=== PATIENT | female | born 1955 | race Caucasian/White ===

== ENCOUNTER → 2018-02-21 08:35 | Outpatient (CLI) | payer OTHER, SELFPAY ==
--- NOTE | 2018-02-21 | DI.CT.S_ITS ---
PROCEDURE: CT CHEST WO CON INDICATIONS: Lung Cancer surveillance. TECHNIQUE: Noncontrast 5 mm thick sections acquired from the pulmonary apices to the posterior costophrenic angles. 7 mm thick coronal and sagittal MIP reformats were then acquired. For radiation dose reduction, the following was used: automated exposure control, adjustment of mA and/or kV according to patient size. COMPARISON: [facility], [place], THORAX WITHOUT CONTRAST, 12/15/2016, 9:39. [facility], [place], THORAX WITHOUT CONTRAST, 12/03/2014, 10:27. [facility], [place], PET/CT SKULL BASE TO MID THIGH, 01/26/2014, 9:11. [facility], [place], THORAX WITHOUT CONTRAST, 01/17/2014, 11:06. FINDINGS: Image quality: Excellent. Lungs and pleura: No acute consolidation. Postsurgical changes related to partial right pneumonectomy, with unchanged scarring and atelectasis. There is additional anterior left upper lobe subpleural scarring/atelectasis which is new from the. No pleural effusions or pneumothorax. Central bronchial wall thickening is present. Left subpleural groundglass focus measuring 8mm is unchanged in appearance since 12/07/16. 2 mm nodule seen in the left upper lobe image 29 is also unchanged since 12/03/14. Mediastinum: Heart size is normal. No pericardial effusion. No mediastinal adenopathy by size criteria. Thoracic aorta and central pulmonary arteries are normal in size. Esophagus is normal in caliber. No hiatal hernia. Bones and chest wall: No suspicious bony lesions. No vertebral body compression fractures. No axillary or supraclavicular adenopathy by size criteria. Thyroid gland negative. Abdomen: Subcentimeter hyperdense focus in the left lobe of the liver which is too small to characterize however unchanged since 12/03/14 IMPRESSION: Overall, stable examination without evidence of active metastatic disease. Postsurgical changes related to prior right partial pneumonectomy. Dictated by: Leonard Gutiérrez M.D. on 02/21/2018 at 9:46 Approved by: Leonard Gutiérrez M.D. on 02/21/2018 at 10:00
== END ==
PROVIDERS: PCP Family Medicine; Visit Provider Family Medicine
DX: C34.90 Malignant neoplasm of unspecified part of unspecified bronchus or lung (principal)
CPT/HCPCS: 71250

== ENCOUNTER → 2018-02-24 10:16 | Outpatient (CLI) | payer OTHER, SELFPAY ==
--- NOTE | 2018-02-24 | DI.MG.S_ITS ---
UNILATERAL RIGHT DIGITAL SCREENING MAMMOGRAM 3D/2D WITH CAD POST MASTECTOMY: 02/24/2018 CLINICAL: Routine screening. Personal history of breast cancer. Comparison is made to exams dated: 01/21/2017 mammogram, 01/01/2017 mammogram, and 12/21/2016 mammogram - [facility]. There are scattered fibroglandular elements in the right breast. Current study was also evaluated with a Computer Aided Detection (CAD) system. There is a mole marker on the right breast. No significant masses, calcifications, or other findings are seen in the breast. IMPRESSION: NEGATIVE There is no mammographic evidence of malignancy. A 1 year screening mammogram is recommended. This exam was interpreted at Station ID: [id number]. NOTE: For mammograms, a report in lay terms will be sent to the patient. Approximately 15% of breast malignancies will not be visualized mammographically. In the management of a palpable breast mass, a negative mammogram must not discourage biopsy of a clinically suspicious lesion. Electronically Signed By: Abhijit aggarwal/chance:02/24/2018 20:31:08 copy to: Ceferion Frazier copy to: SAJI WOLFF letter sent: Normal Exam ACR BI-RADS Category 1: Negative 3341F
== END ==
PROVIDERS: PCP Family Medicine; Visit Provider Family Medicine
DX: Z12.31 Encounter for screening mammogram for malignant neoplasm of breast (principal); Z85.3 Personal history of malignant neoplasm of breast
CPT/HCPCS: 77063; 77065

== ENCOUNTER → 2018-03-04 10:30 | Outpatient (CLI) | payer OTHER, SELFPAY ==
--- NOTE | 2018-03-04 | DI.RAD.S_ITS ---
PROCEDURE: XR KNEE LT 3V INDICATIONS: LEFT KNEE PAIN TECHNIQUE: 3 views of the knee were acquired. COMPARISON: [facility], , KNEE 1-2 VIEWS LEFT, 10/02/2006, 10:55. FINDINGS: Bones: No fractures or dislocations. No suspicious bony lesions. Moderate to severe medial and moderate patellofemoral narrowing, with subchondral sclerosis. Periarticular osteophytes are present. No erosions. Soft tissues: Moderate joint effusion. No suspicious soft tissue calcifications. IMPRESSION: Moderate effusion and degenerative changes consistent with arthritis most severe in the medial compartment as above. Dictated by: Lakisha Rebolledo M.D. on 03/04/2018 at 11:48 Approved by: Lakisha Rebolledo M.D. on 03/04/2018 at 11:51
== END ==
PROVIDERS: PCP Family Medicine; Visit Provider Family Medicine
DX: M17.12 Unilateral primary osteoarthritis, left knee (principal); M25.562 Pain in left knee
CPT/HCPCS: 73562

== ENCOUNTER → 2018-06-09 09:15 | Outpatient (CLI) | payer OTHER, SELFPAY ==
[2018-06-09 09:34] LABS: Add Manual Diff / Slide Review NO; Basophils Percent Auto 0.3 % (0-2); Eosinophils Percent Auto 3.3 % (2-4); Hematocrit 40.8 % (36-46); Hemoglobin 13.7 g/dL (12.0-16.0); Lymphocytes Percent Auto 21.5 % (25-40); Mean Corpuscular HGB Conc 33.6 % (30-36); Mean Corpuscular Hemoglobin 30.5 PG (26-34); Neutrophils Absolute Auto 5900 /uL (3000-5900); Neutrophils Percent Auto 65.9 % (50-75); Platelet Count 216 X10^3/uL (150-400); Red Blood Cell Count 4.49 X10^6/uL (4.0-5.2); Red Cell Distribution Width 13.6 % (11.6-14.8); White Blood Cell Count 8.9 X10^3/uL (4.5-11.0)
[2018-06-09 09:44] LABS: Alanine Aminotransferase 21 IU/L (9-52); Albumin 4.3 g/dL (3.5-5.0); Albumin Globulin Ratio 1.4 (1.0-2.8); Alkaline Phosphatase 50 U/L (38-126); Aspartate Aminotransferase 19 IU/L (14-36); BUN Creatinine Ratio 22.9 (6-22); Bilirubin Total 0.4 mg/dL (0.2-1.3); Blood Urea Nitrogen 16 mg/dL (7-17); Calcium 8.6 mg/dL (8.4-10.2); Carbon Dioxide 21 mmol/L (22-32); Chloride 105 mmol/L (98-107); Estimated Glomerular Filt Rate > 60.0 mL/min (>60); Globulin 3.1 g/dL (1.7-4.1); Glucose 110 mg/dL (80-110); HEMOLYSIS < 15 (0-50); Potassium 4.4 mmol/L (3.4-5.1); Sodium 137 mmol/L (137-145); Total Protein 7.4 g/dL (6.3-8.2)
== END ==
PROVIDERS: Family Provider Family Medicine; PCP Family Medicine; Visit Provider Nurse Practitioner Gerontology
DX: C50.912 Malignant neoplasm of unspecified site of left female breast (principal); Z17.0 Estrogen receptor positive status [ER+]
CPT/HCPCS: 36415; 80053; 85025

== ENCOUNTER 2018-06-14 11:00 | Oncology outpatient (ONC) | payer OTHER, SELFPAY ==
--- NOTE | 2018-01-28 08:34 | P.PNONC_ITS ---
Assessment and Plan (1) Breast cancer in female Current visit: No Status: Acute 01/28/18 08:33 Patient's a very pleasant 62-year-old female with node negative, well- differentiated, ER positive breast cancer. She underwent left mastectomy. She received chemotherapy in the form of Taxol cyclophosphamide followed by radiation therapy. Adjuvant hormonal therapy in the form of tamoxifen was initiated October of 2017 since which time patient reports feeling quite depressed. She does have a remote history of depression, not requiring hospitalization, not requiring medication. She has been taking some lorazepam at home which was prescribed for her chemotherapy. I discussed with her lorazepam is a sedative and most likely might worsen her depression. It might help with feelings of anxiety. Moving forward I do not want her taking lorazepam daily for depression. Step 1. I asked her to see a counselor or therapist. Patient very politely declined, stating ?I know this will work for me?. Plan at this point in time is to take a tamoxifen drug holiday for 2 weeks. Resume tamoxifen after 2 weeks, return to clinic after 4 weeks on tamoxifen to evaluate. If symptoms are not improved we will discuss starting an antidepressant although I again strongly recommended to the patient that she reconsider seeing a therapist or counselor. CBC, CMP unremarkable today. Exam is unremarkable as well. Return to clinic in 6 weeks as per above. I will have our STREET LIGHT INSPECTOR Aniya Ritter reach out to the patient and offer support. 01/28/18 16:36 - Time Spent with Patient 35 mins PN -Subjective Interval history: The patient is a 62 year old Female who is being seen in the clinic 01/28/2018. She carries a diagnosis of stage II node-negative ER positive HER-2 negative low -grade breast cancer in clinical surveillance since her diagnosis was made in January 2017. She received chemotherapy in the form paclitaxel cyclophosphamide x4 cycles. Chest wall radiation therapy was completed on September 15, 2017. Tamoxifen was initiated November 04, 2017. Patient returns today for 3 month clinical evaluation. Today she reports ?depression? since starting tamoxifen. She reports she is easily tearful. She lacks motivation. She spends most of her time in the house. She feels he she is not herself. She feels blue most of the time. No suicidal ideations, no homicidal ideations. She does have a remote history of depression many years ago. She has never been on medication she has never been hospitalized. She has some lorazepam which she used when she was receiving chemotherapy she has been taking 1 mg in the morning and occasionally 1 mg in the evening which she reports has been ?helping?. Otherwise seems clinically stable. No recent illnesses or infections. She does do self-breast exams she has not noticed any changes. No postop or post radiation concerns. Activity tolerance has been affected by depression however the patient denies shortness of breath. No nausea. No change in appetite. No issues with sleep. No vaginal bleeding, no LE edema or pain.She is having hot flashes however reports them to be ?tolerable?. She is still being followed by General surgery Dr. Frazier also Radiation Oncology Dr. Arriaga. She has upcoming appointments with both. Past Medical History The patient's past medical history is significant for: 1) Breast cancer, Left - multifocal. Stage IIB (pT3, N0, M0) Diagnosis: 01/21/2017. Ultrasound core needle biopsy left breast 2:00 x 3: Biopsy #1. 3 cm from nipple. Pathology confirming invasive carcinoma. Histology showing solid papillary carcinoma. Overall grade was 1 with a mitotic score of 1. No DCIS was seen. ER and WA positive at 100% and 10% respectively. HER-2 negative. Biopsy #2. Anterior medial. Pathology confirming invasive carcinoma. Histological grade 1 with a mitotic rate of 1. Immunostains ER and WA positive at 100% and 10% respectively. Biopsy #3. Nipple, lateral. 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 Martha grade 1. Clinical staging workup, pretreatment: 12/21/2016. Bilateral screening mammogram. Breast tissue is predominantly fatty. Mass the left breast 1:00 anterior depth is identified. 01/01/2017. Diagnostic left mammogram. Left breast tissue predominantly fatty. At the 2:00 middle depth position is a 13 mm irregular mass with an distinct margins and coarse calcifications. This correlates with the screening mammogram dated 12/21/2016. 01/01/2017. Ultrasound left breast and left axilla. In the lateral quadrant anterior depth, 3 clusters of lobulated solid masses are identified, each measuring up to 15 mm. The farthest distance between the masses is estimated at 3 cm. New compared to mammogram dated 01/13/2011. 02/17/2017. MRI of the breast. Left Breast findings: Biopsy-proven mass, labeled 1: 3:00 anterior depth. Measuring 13 x 13 x 10 mm. Biopsy-proven mass, labeled 2: 3:00 anterior to middle depth. Measuring 10 x 10 x 11 mm. Biopsy-proven mass, labeled 3: 3:00 radius middle third. Measuring 9 x 9 x 6 mm. Oval mass not biopsied, labeled 4; 3:00 posterior depth. No measurements provided. Left axillary lymph node. Fatty hilum seen. Cortex may be thickened. No abnormality seen in the right breast. No abnormality seen in the liver lungs are internal mammary nodes. 02/24/2017. Bone scan whole-body. No evidence of metastatic bone disease. Multiple areas of degenerative joint disease seen. 02/24/2017. Baseline laboratory data: CEA equal to 12.2 (normal less than 3), CA 15.3 = 25, and CA 27.29 = 19 Definitive Surgery: 03/09/2017. Left breast mastectomy with sentinel node procedure. Pathology confirming multifocal invasive papillary carcinoma. 2 foci seen 1 measuring 70 mm another measuring 17 mm. No DCIS was seen. [place] histological score was 3. Overall grade was 1. 2 sentinel lymph nodes were identified both negative for disease. Prognosis: 04/01/2017. Predict [facility] online. 5 and 10 year overall survival without further therapy at 92.9% and 81.6% respectively. Treatment recommendations: Adjuvant chemotherapy with paclitaxel cyclophosphamide ?4 cycles followed by radiation therapy followed by adjuvant hormonal therapy. 04/20/2017-07/06/2017. Cyclophosphamide paclitaxel x 6 cycles. 11/04/2017 - Present: Tamoxfen 20 mg daily x 5 years. 2) Lung Cancer, Right. Stage I. Remission Diagnosis: February 2013. Wedge resection at by Dr. Trujillo. Adenocarcinoma. Pathology unavailable. Clinical Stagin11/26/2010. CT chest with contrast. 2 groundglass nodules right lower lobe measuring up to 4 mm. Left groundglass nodule measuring 3 mm. Left upper lobe nodule measuring 3 mm. 05/04/2011. CT chest without contrast. 2 small ill-defined nodules superior segments the lower lobe one on each side unchanged compared to 12/04/2010. Surveillence: 01/26/2014. PET/CT scan. Right lower lobe 9 mm groundglass nodule, new compared to April 2011. No SUV activity however increase compared to April 2012. 12/03/2014. CT chest without contrast. Left upper lobe nodule new. 12/15/2016 CT chest without contrast. Left lower lobe 6-7 mm ill-defined area of groundglass opacity, mildly increased. Left lung base nodule measuring 2-3 mm , unchanged. Left upper lobe groundglass nodule measuring 2 mm, unchanged.past medical history is significant for: Breast Resection Staging BC Primary Tumor T1- Tumor <= 20mm BC Regional Nodes N1-movable Ipsilat/axill BC Resection Histology Grade I Results - Labs 01/28/18 14:04 01/28/18 14:04 Home Medications and Allergies Home Medications Medication Instructions Recorded Confirmed Type vivi (Zingiber officinalis) 550 mg PO BID #0 04/27/17 History pyridoxine (vitamin B6) 300 mg PO QDAY #0 04/27/17 History lorazepam 0.5 mg PO Q6HP PRN #60 tab 06/29/17 Rx calcium carbonate 2,400 mg PO Q DAY #0 11/04/17 History tamoxifen 20 mg PO QDAY #30 tab 11/04/17 Rx Allergies Allergy/AdvReac Type Severity Reaction Status Date / Time No Known Allergies Allergy Uncoded 11/17/17 12:04 Exam Narrative: a bit tearful at outset of interview and exam. Non toxic appearing, well appearing. - Constitutional positive no acute distress - Routine HEENT Exam ENT: Present: mucous membranes moist - Routine Neck Exam Present: supple. Absent: lymphadenopathy, thyromegaly - Routine Chest/Breast/Axilla Exam Chest wall exam standard: Absent: tenderness, mass Breast: Present: left mastectomy. Absent: tenderness, mass, erythema Axillae: Absent: lymphadenopathy, mass, tenderness - Routine Respiratory Exam Present: Clear to auscultation bilaterally. Absent: rales, rhonchi, wheezes - Routine Cardiovascular Exam Present: RRR, S1, S2. Absent: murmur, gallop, rubs - Routine Abdominal Exam Present: soft, normoactive bowel sounds. Absent: tenderness, distended, organomegaly - Routine Extremities Exam Absent: edema, calf tenderness - Routine Skin Exam Present: intact, normal turgor. Absent: petechiae, rash - Routine Neurological Exam Present: alert, oriented X3, vision grossly intact, hearing grossly intact - Routine Psychiatric Exam Present: normal affect, normal thought process, cooperative, good insight, good judgment. Absent: suicidal ideation, homicidal ideation, auditory hallucinations, depressed, anxious
[2018-01-28 14:16] LABS: Add Manual Diff / Slide Review NO; Basophils Percent Auto 0.4 % (0-2); Eosinophils Percent Auto 2.6 % (2-4); Hematocrit 40.7 % (36-46); Hemoglobin 13.8 g/dL (12.0-16.0); Lymphocytes Percent Auto 27.6 % (25-40); Mean Corpuscular HGB Conc 33.8 % (30-36); Mean Corpuscular Volume 91.6 fL (80-100); Monocytes Percent Auto 10.2 % (3-14); Neutrophils Absolute Auto 3700 /uL (3000-5900); Neutrophils Percent Auto 59.2 % (50-75); Platelet Count 178 X10^3/uL (150-400); Red Blood Cell Count 4.45 X10^6/uL (4.0-5.2); Red Cell Distribution Width 13.1 % (11.6-14.8); White Blood Cell Count 6.2 X10^3/uL (4.5-11.0)
[2018-01-28 14:24] LABS: Alanine Aminotransferase 45 IU/L (9-52); Albumin 4.2 g/dL (3.5-5.0); Albumin Globulin Ratio 1.3 (1.0-2.8); Alkaline Phosphatase 60 U/L (38-126); Aspartate Aminotransferase 33 IU/L (14-36); BUN Creatinine Ratio 15.7 (6-22); Bilirubin Total 0.5 mg/dL (0.2-1.3); Blood Urea Nitrogen 11 mg/dL (7-17); Carbon Dioxide 26 mmol/L (22-32); Chloride 104 mmol/L (98-107); Estimated Glomerular Filt Rate > 60.0 mL/min (>60); Globulin 3.3 g/dL (1.7-4.1); Glucose 102 mg/dL (80-110); HEMOLYSIS < 15 (0-50); Potassium 4.2 mmol/L (3.4-5.1); Sodium 139 mmol/L (137-145); Total Protein 7.5 g/dL (6.3-8.2)
[2018-01-28 15:22] VITALS: BP 134/80; PULSE 78; RESP 18; TEMP 36.8; O2SAT 97
[2018-03-14 12:06] VITALS: BP 142/80; PULSE 72; RESP 16; TEMP 36.8; O2SAT 96
--- NOTE | 2018-03-14 12:29 | P.PNONC_ITS ---
Assessment and Plan (1) Breast cancer in female Current visit: No Status: Acute 03/14/18 12:27 The patient is a 62 year old Female who is being seen in the clinic 03/14/2018. She carries a diagnosis of stage II node-negative ER positive HER-2 negative low -grade breast cancer in clinical surveillance since her diagnosis was made in January 2017. She received chemotherapy in the form paclitaxel cyclophosphamide x4 cycles. Chest wall radiation therapy was completed on September 15, 2017. Tamoxifen was initiated November 04, 2017. Patient was most recently seen January 28, 2018 at which point she was reporting severe depression which she felt was due to tamoxifen. She took a tamoxifen drug holiday for 2 weeks then resumed. She has been back on tamoxifen for 4 weeks and reporting she has absolutely no more depression. Overall she is feeling quite well. She does wish to continue on tamoxifen. She had recent mammogram, bilateral screening which was reported without evidence of malignancy. She also had chest CT noting history of lung cancer. This was also without evidence of active disease. Return to clinic in 3 months time for provider visit, CBC, CMP. Continue tamoxifen. PN -Subjective Interval history: The patient is a 62 year old Female who is being seen in the clinic 03/14/2018. She carries a diagnosis of stage II node-negative ER positive HER-2 negative low -grade breast cancer in clinical surveillance since her diagnosis was made in January 2017. She received chemotherapy in the form paclitaxel cyclophosphamide x4 cycles. Chest wall radiation therapy was completed on September 15, 2017. Tamoxifen was initiated November 04, 2017. Patient was most recently seen January 28, 2018 at which point she was reporting severe depression which she felt was due to tamoxifen. She took a tamoxifen drug holiday for 2 weeks then resumed. She has been back on tamoxifen for 4 weeks. On exam today she reports she is ?much better?. Specifically she denies any depression whatsoever. No fatigue. Appetite excellent, sleeping well. She states ? I am back to my normal self, the drug holiday worked. She does have some minor hot flashes. No vaginal bleeding. During the interval she did undergo routine bilateral mammogram screening which was reported without evidence of malignancy. She also had chest CT ordered by her primary care provider noting a diagnosis of prior history lung cancer. This chest CT was also without evidence of active disease. She is still being followed by General surgery Dr. Potter also Radiation Oncology Dr. Arriaga. She has upcoming appointments with both. Past Medical History The patient's past medical history is significant for: 1) Breast cancer, Left - multifocal. Stage IIB (pT3, N0, M0) Diagnosis: 01/21/2017. Ultrasound core needle biopsy left breast 2:00 x 3: Biopsy #1. 3 cm from nipple. Pathology confirming invasive carcinoma. Histology showing solid papillary carcinoma. Overall grade was 1 with a mitotic score of 1. No DCIS was seen. ER and WA positive at 100% and 10% respectively. HER-2 negative. Biopsy #2. Anterior medial. Pathology confirming invasive carcinoma. Histological grade 1 with a mitotic rate of 1. Immunostains ER and WA positive at 100% and 10% respectively. Biopsy #3. Nipple, lateral. 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 [place] grade 1. Clinical staging workup, pretreatment: 12/21/2016. Bilateral screening mammogram. Breast tissue is predominantly fatty. Mass the left breast 1:00 anterior depth is identified. 01/01/2017. Diagnostic left mammogram. Left breast tissue predominantly fatty. At the 2:00 middle depth position is a 13 mm irregular mass with an distinct margins and coarse calcifications. This correlates with the screening mammogram dated 12/21/2016. 01/01/2017. Ultrasound left breast and left axilla. In the lateral quadrant anterior depth, 3 clusters of lobulated solid masses are identified, each measuring up to 15 mm. The farthest distance between the masses is estimated at 3 cm. New compared to mammogram dated 01/13/2011. 02/17/2017. MRI of the breast. Left Breast findings: Biopsy-proven mass, labeled 1: 3:00 anterior depth. Measuring 13 x 13 x 10 mm. Biopsy-proven mass, labeled 2: 3:00 anterior to middle depth. Measuring 10 x 10 x 11 mm. Biopsy-proven mass, labeled 3: 3:00 radius middle third. Measuring 9 x 9 x 6 mm. Oval mass not biopsied, labeled 4; 3:00 posterior depth. No measurements provided. Left axillary lymph node. Fatty hilum seen. Cortex may be thickened. No abnormality seen in the right breast. No abnormality seen in the liver lungs are internal mammary nodes. 02/24/2017. Bone scan whole-body. No evidence of metastatic bone disease. Multiple areas of degenerative joint disease seen. 02/24/2017. Baseline laboratory data: CEA equal to 12.2 (normal less than 3), CA 15.3 = 25, and CA 27.29 = 19 Definitive Surgery: 03/09/2017. Left breast mastectomy with sentinel node procedure. Pathology confirming multifocal invasive papillary carcinoma. 2 foci seen 1 measuring 70 mm another measuring 17 mm. No DCIS was seen. [place] histological score was 3. Overall grade was 1. 2 sentinel lymph nodes were identified both negative for disease. Prognosis: 04/01/2017. Predict [facility] online. 5 and 10 year overall survival without further therapy at 92.9% and 81.6% respectively. Treatment recommendations: Adjuvant chemotherapy with paclitaxel cyclophosphamide ?4 cycles followed by radiation therapy followed by adjuvant hormonal therapy. 04/20/2017-07/06/2017. Cyclophosphamide paclitaxel x 6 cycles. 11/04/2017 - Present: Tamoxfen 20 mg daily x 5 years. 2) Lung Cancer, Right. Stage I. Remission Diagnosis: February 2013. Wedge resection at by Dr. Trujillo. Adenocarcinoma. Pathology unavailable. Clinical Stagin11/26/2010. CT chest with contrast. 2 groundglass nodules right lower lobe measuring up to 4 mm. Left groundglass nodule measuring 3 mm. Left upper lobe nodule measuring 3 mm. 05/04/2011. CT chest without contrast. 2 small ill-defined nodules superior segments the lower lobe one on each side unchanged compared to 12/04/2010. Surveillence: 01/26/2014. PET/CT scan. Right lower lobe 9 mm groundglass nodule, new compared to April 2011. No SUV activity however increase compared to April 2012. 12/03/2014. CT chest without contrast. Left upper lobe nodule new. 12/15/2016 CT chest without contrast. Left lower lobe 6-7 mm ill-defined area of groundglass opacity, mildly increased. Left lung base nodule measuring 2-3 mm , unchanged. Left upper lobe groundglass nodule measuring 2 mm, unchanged.past medical history is significant for: Breast Resection Staging BC Primary Tumor T1- Tumor <= 20mm BC Regional Nodes N1-movable Ipsilat/axill BC Resection Histology Grade I Results - Labs 01/28/18 14:04 01/28/18 14:04 Laboratory Last Values WBC 6.2 X10^3/uL (4.5-11.0) 01/28/18 14:04 RBC 4.45 X10^6/uL (4.0-5.2) 01/28/18 14:04 Hgb 13.8 g/dL (12.0-16.0) 01/28/18 14:04 Hct 40.7 % (36-46) 01/28/18 14:04 MCV 91.6 fL (80-100) 01/28/18 14:04 MCH 31.0 PG (26-34) 01/28/18 14:04 MCHC 33.8 % (30-36) 01/28/18 14:04 RDW 13.1 % (11.6-14.8) 01/28/18 14:04 Plt Count 178 X10^3/uL (150-400) 01/28/18 14:04 Neut % (Auto) 59.2 % (50-75) 01/28/18 14:04 Lymph % (Auto) 27.6 % (25-40) 01/28/18 14:04 [place] % (Auto) 10.2 % (3-14) 01/28/18 14:04 Eos % (Auto) 2.6 % (2-4) 01/28/18 14:04 Baso % (Auto) 0.4 % (0-2) 01/28/18 14:04 Neut # (Auto) 3700 /uL (9058-5735) 01/28/18 14:04 Sodium 139 mmol/L (137-145) 01/28/18 14:04 Potassium 4.2 mmol/L (3.4-5.1) 01/28/18 14:04 Chloride 104 mmol/L (98-107) 01/28/18 14:04 Carbon Dioxide 26 mmol/L (22-32) 01/28/18 14:04 BUN 11 mg/dL (7-17) 01/28/18 14:04 Creatinine 0.70 mg/dL (0.52-1.04) 01/28/18 14:04 Estimated GFR > 60.0 mL/min (>60) 01/28/18 14:04 BUN/Creatinine Ratio 15.7 (6-22) 01/28/18 14:04 Glucose 102 mg/dL (80-110) 01/28/18 14:04 Calcium 9.0 mg/dL (8.4-10.2) 01/28/18 14:04 Total Bilirubin 0.5 mg/dL (0.2-1.3) 01/28/18 14:04 AST 33 IU/L (14-36) 01/28/18 14:04 ALT 45 IU/L (9-52) 01/28/18 14:04 Alkaline Phosphatase 60 U/L (38-126) 01/28/18 14:04 Total Protein 7.5 g/dL (6.3-8.2) 01/28/18 14:04 Albumin 4.2 g/dL (3.5-5.0) 01/28/18 14:04 Globulin 3.3 g/dL (1.7-4.1) 01/28/18 14:04 Albumin/Globulin Ratio 1.3 (1.0-2.8) 01/28/18 14:04 Home Medications and Allergies Home Medications Medication Instructions Recorded Confirmed Type lorazepam 0.5 mg PO Q6HP PRN #60 tab 06/29/17 Rx calcium carbonate 2,400 mg PO Q DAY #0 11/04/17 History tamoxifen 20 mg PO QDAY #30 tab 11/04/17 Rx Allergies Allergy/AdvReac Type Severity Reaction Status Date / Time No Known Allergies Allergy Uncoded 11/17/17 12:04 Exam Vital signs: Last Vital Signs Temp 98.3 F 03/14/18 12:06 Pulse 72 03/14/18 12:06 Resp 16 03/14/18 12:06 BP 142/80 H 03/14/18 12:06 Pulse Ox 96 03/14/18 12:06 - Constitutional positive no acute distress - Routine HEENT Exam Head: Present: normocephalic, atraumatic Eye: Present: conjunctivae pink. Absent: conjunctival icterus, scleral injection ENT: Present: mucous membranes moist - Routine Skin Exam Present: normal turgor. Absent: rash - Routine Neurological Exam Present: alert, oriented X3 - Routine Psychiatric Exam Present: normal affect, cooperative, good insight, good judgment. Absent: depressed, anxious
--- NOTE | 2018-05-20 10:52 | PC.NURSE ---
Addendum entered by Tim Nascimento R.N. 05/31/18 08:46: Rx faxed to [facility] per pt request Original Note: Pt called requesting a refill on her ativan. Preferred pharmacy is [facility]
[2018-06-14 11:04] VITALS: BP 133/80; PULSE 74; RESP 18; TEMP 36.7; O2SAT 96
--- NOTE | 2018-06-14 11:48 | P.PNONC_ITS ---
PN -Subjective Interval history: The patient is a 63 year old Female who is being seen in the clinic 06/14/2018. She carries a diagnosis of stage II node-negative ER positive HER-2 negative low -grade breast cancer in clinical surveillance since her diagnosis was made in January 2017. She received chemotherapy in the form paclitaxel cyclophosphamide x4 cycles. Chest wall radiation therapy was completed on September 15, 2017. Tamoxifen was initiated November 04, 2017. Patient was most recently seen 02/22/2018 at which point she was reporting severe depression which she felt was due to tamoxifen. She took a tamoxifen drug holiday for 2 weeks then resumed. Per pt reports she was just fine after drug holiday, no further issues. Mood has been stable, no further episodes of depression. the pt states Yes I feel like my normal happy self. Specifically the pat denies any new pain, no new lumps or bumps. No headaches. No vaginal bleeding the patient has had a hysterectomy. No lower extremity swelling, no pain in calves. Appetite is excellent. Weight is stable. During the interval she did undergo routine bilateral mammogram screening which was reported without evidence of malignancy. She also had chest CT ordered by her primary care provider noting a diagnosis of prior history lung cancer. This chest CT was also without evidence of active disease. She is still being followed by General surgery Dr. Frazier also Radiation Oncology Dr. Arriaga. She has upcoming appointments with both. Past Medical History The patient's past medical history is significant for: 1) Breast cancer, Left - multifocal. Stage IIB (pT3, N0, M0) Diagnosis: 01/21/2017. Ultrasound core needle biopsy left breast 2:00 x 3: Biopsy #1. 3 cm from nipple. Pathology confirming invasive carcinoma. Histology showing solid papillary carcinoma. Overall grade was 1 with a mitotic score of 1. No DCIS was seen. ER and MS positive at 100% and 10% respectively. HER-2 negative. Biopsy #2. Anterior medial. Pathology confirming invasive carcinoma. Histological grade 1 with a mitotic rate of 1. Immunostains ER and MS positive at 100% and 10% respectively. Biopsy #3. Nipple, lateral. 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 Martha grade 1. Clinical staging workup, pretreatment: 12/21/2016. Bilateral screening mammogram. Breast tissue is predominantly fatty. Mass the left breast 1:00 anterior depth is identified. 01/01/2017. Diagnostic left mammogram. Left breast tissue predominantly fatty. At the 2:00 middle depth position is a 13 mm irregular mass with an distinct margins and coarse calcifications. This correlates with the screening mammogram dated 12/21/2016. 01/01/2017. Ultrasound left breast and left axilla. In the lateral quadrant anterior depth, 3 clusters of lobulated solid masses are identified, each measuring up to 15 mm. The farthest distance between the masses is estimated at 3 cm. New compared to mammogram dated 01/13/2011. 02/17/2017. MRI of the breast. Left Breast findings: Biopsy-proven mass, labeled 1: 3:00 anterior depth. Measuring 13 x 13 x 10 mm. Biopsy-proven mass, labeled 2: 3:00 anterior to middle depth. Measuring 10 x 10 x 11 mm. Biopsy-proven mass, labeled 3: 3:00 radius middle third. Measuring 9 x 9 x 6 mm. Oval mass not biopsied, labeled 4; 3:00 posterior depth. No measurements provided. Left axillary lymph node. Fatty hilum seen. Cortex may be thickened. No abnormality seen in the right breast. No abnormality seen in the liver lungs are internal mammary nodes. 02/24/2017. Bone scan whole-body. No evidence of metastatic bone disease. Multiple areas of degenerative joint disease seen. 02/24/2017. Baseline laboratory data: CEA equal to 12.2 (normal less than 3), CA 15.3 = 25, and CA 27.29 = 19 Definitive Surgery: 03/09/2017. Left breast mastectomy with sentinel node procedure. Pathology confirming multifocal invasive papillary carcinoma. 2 foci seen 1 measuring 70 mm another measuring 17 mm. No DCIS was seen. Stigler histological score was 3. Overall grade was 1. 2 sentinel lymph nodes were identified both negative for disease. Prognosis: 04/01/2017. Predict [facility] online. 5 and 10 year overall survival without further therapy at 92.9% and 81.6% respectively. Treatment recommendations: Adjuvant chemotherapy with paclitaxel cyclophosphamide ?4 cycles followed by radiation therapy followed by adjuvant hormonal therapy. 04/20/2017-07/06/2017. Cyclophosphamide paclitaxel x 6 cycles. 11/04/2017 - Present: Tamoxfen 20 mg daily x 5 years. 2) Lung Cancer, Right. Stage I. Remission Diagnosis: February 2013. Wedge resection at by Dr. Trujillo. Adenocarcinoma. Pathology unavailable. Clinical Stagin11/26/2010. CT chest with contrast. 2 groundglass nodules right lower lobe measuring up to 4 mm. Left groundglass nodule measuring 3 mm. Left upper lobe nodule measuring 3 mm. 05/04/2011. CT chest without contrast. 2 small ill-defined nodules superior segments the lower lobe one on each side unchanged compared to 12/04/2010. Surveillence: 01/26/2014. PET/CT scan. Right lower lobe 9 mm groundglass nodule, new compared to April 2011. No SUV activity however increase compared to April 2012. 12/03/2014. CT chest without contrast. Left upper lobe nodule new. 12/15/2016 CT chest without contrast. Left lower lobe 6-7 mm ill-defined area of groundglass opacity, mildly increased. Left lung base nodule measuring 2-3 mm , unchanged. Left upper lobe groundglass nodule measuring 2 mm, unchanged.past medical history is significant for: Breast Resection Staging BC Primary Tumor T1- Tumor <= 20mm BC Regional Nodes N1-movable Ipsilat/axill BC Resection Histology Grade I Home Medications and Allergies Home Medications Medication Instructions Recorded Confirmed Type calcium carbonate 2,400 mg PO Q DAY #0 11/04/17 History lorazepam 0.5 mg PO Q8-10H PRN #60 tab 05/30/18 Rx tamoxifen 20 mg PO DAILY #90 tab 06/14/18 Rx Allergies Allergy/AdvReac Type Severity Reaction Status Date / Time No Known Allergies Allergy Uncoded 11/17/17 12:04 Exam - Constitutional positive no acute distress - Routine HEENT Exam Eye: Present: conjunctivae pink. Absent: conjunctival icterus, scleral injection ENT: Present: mucous membranes moist, oropharynx clear - Routine Neck Exam Present: supple. Absent: lymphadenopathy - Routine Chest/Breast/Axilla Exam Chest wall exam standard: Absent: tenderness, mass Breast: Present: left mastectomy. Absent: tenderness, induration, mass Axillae: Absent: lymphadenopathy, mass - Routine Respiratory Exam Present: Clear to auscultation bilaterally, decreased breath sounds. Absent: prolonged expiratory phase, rales, respiratory distress, rhonchi, wheezes - Routine Cardiovascular Exam Present: RRR, S1, S2. Absent: murmur, gallop, rubs, JVD - Routine Abdominal Exam Present: soft, normoactive bowel sounds. Absent: tenderness, distended, organomegaly, mass - Routine Extremities Exam Absent: edema, calf tenderness - Routine Skin Exam Present: intact, normal turgor. Absent: petechiae, rash - Routine Neurological Exam Present: alert, oriented X3 - Routine Psychiatric Exam Present: normal affect Results - Labs Laboratory Last Values WBC 6.2 X10^3/uL (4.5-11.0) 01/28/18 14:04 RBC 4.45 X10^6/uL (4.0-5.2) 01/28/18 14:04 Hgb 13.8 g/dL (12.0-16.0) 01/28/18 14:04 Hct 40.7 % (36-46) 01/28/18 14:04 MCV 91.6 fL (80-100) 01/28/18 14:04 MCH 31.0 PG (26-34) 01/28/18 14:04 MCHC 33.8 % (30-36) 01/28/18 14:04 RDW 13.1 % (11.6-14.8) 01/28/18 14:04 Plt Count 178 X10^3/uL (150-400) 01/28/18 14:04 Neut % (Auto) 59.2 % (50-75) 01/28/18 14:04 Lymph % (Auto) 27.6 % (25-40) 01/28/18 14:04 [place] % (Auto) 10.2 % (3-14) 01/28/18 14:04 Eos % (Auto) 2.6 % (2-4) 01/28/18 14:04 Baso % (Auto) 0.4 % (0-2) 01/28/18 14:04 Neut # (Auto) 3700 /uL (2555-7097) 01/28/18 14:04 Sodium 139 mmol/L (137-145) 01/28/18 14:04 Potassium 4.2 mmol/L (3.4-5.1) 01/28/18 14:04 Chloride 104 mmol/L (98-107) 01/28/18 14:04 Carbon Dioxide 26 mmol/L (22-32) 01/28/18 14:04 BUN 11 mg/dL (7-17) 01/28/18 14:04 Creatinine 0.70 mg/dL (0.52-1.04) 01/28/18 14:04 Estimated GFR > 60.0 mL/min (>60) 01/28/18 14:04 BUN/Creatinine Ratio 15.7 (6-22) 01/28/18 14:04 Glucose 102 mg/dL (80-110) 01/28/18 14:04 Calcium 9.0 mg/dL (8.4-10.2) 01/28/18 14:04 Total Bilirubin 0.5 mg/dL (0.2-1.3) 01/28/18 14:04 AST 33 IU/L (14-36) 01/28/18 14:04 ALT 45 IU/L (9-52) 01/28/18 14:04 Alkaline Phosphatase 60 U/L (38-126) 01/28/18 14:04 Total Protein 7.5 g/dL (6.3-8.2) 01/28/18 14:04 Albumin 4.2 g/dL (3.5-5.0) 01/28/18 14:04 Globulin 3.3 g/dL (1.7-4.1) 01/28/18 14:04 Albumin/Globulin Ratio 1.3 (1.0-2.8) 01/28/18 14:04 Assessment and Plan (1) Breast cancer in female Current visit: No Status: Acute The patient is a 63-year-old female who carries a diagnosis of stage II node- negative ER positive HER-2 negative low-grade breast cancer in clinical surveillance since her diagnosis was made in January 2017. She received chemotherapy in the form paclitaxel . She remains on tamoxifen without adverse effects. Clinically on exam today there are no signs or symptoms of disease recurrence. She will be due for her next screening mammogram in February of 2019. Per patient request I have sent over a refill for tamoxifen. Patient is to return to clinic in 6 months for provider visit CBC, CMP. Sooner for any changes or concerns. - Time Spent with Patient 25 mins
== END 2018-06-15 12:00 ==
PROVIDERS: PCP Family Medicine; Visit Provider Nurse Practitioner Gerontology
DX: C50.412 Malignant neoplasm of upper-outer quadrant of left female breast (principal); Z17.0 Estrogen receptor positive status [ER+]; Z79.810 Long term (current) use of selective estrogen receptor modulators (SERMs); Z85.118 Personal history of other malignant neoplasm of bronchus and lung
CPT/HCPCS: 80053; 85025; 99213; 99214

== ENCOUNTER → 2019-05-08 13:44 | Outpatient (CLI) | payer OTHER, SELFPAY ==
--- NOTE | 2019-05-08 13:46 | DI.MG.S_ITS ---
UNILATERAL RIGHT DIGITAL SCREENING MAMMOGRAM 3D/2D WITH CAD POST MASTECTOMY: 05/08/2019 CLINICAL: Routine screening. Personal history of breast cancer. Comparison is made to exams dated: 02/24/2018 mammogram, 12/21/2016 mammogram, and 01/13/2011 mammogram - [facility]. There are scattered fibroglandular elements in right breast. Current study was also evaluated with a Computer Aided Detection (CAD) system. There is a mole marker on the right breast. No significant masses, calcifications, or other findings are seen in the breast. There has been no significant interval change. IMPRESSION: NEGATIVE There is no mammographic evidence of malignancy. A 1 year screening mammogram is recommended. This exam was interpreted at Station ID: [id number]. NOTE: For mammograms, a report in lay terms will be sent to the patient. Approximately 15% of breast malignancies will not be visualized mammographically. In the management of a palpable breast mass, a negative mammogram must not discourage biopsy of a clinically suspicious lesion. Electronically Signed By: Efrem connelly/chance:05/08/2019 17:23:31 copy to: Prateek Castillo letter sent: Normal Exam ACR BI-RADS Category 1: Negative 3341F
--- NOTE | 2019-05-08 13:51 | DI.CT.S_ITS ---
PROCEDURE: CT CHEST WO CON INDICATIONS: h/o lung cancer TECHNIQUE: Noncontrast 5 mm thick sections acquired from the pulmonary apices to the posterior costophrenic angles. 1 mm lung window, 5 mm thick coronal and sagittal and 7 mm axial MIP reformats were then acquired. For radiation dose reduction, the following was used: automated exposure control, adjustment of mA and/or kV according to patient size. COMPARISON: [facility], CT, THORAX WITHOUT CONTRAST, 12/15/2016, 9:39. [facility], CT, THORAX WITHOUT CONTRAST, 12/03/2014, 10:27. [facility], [place], PET/CT SKULL BASE TO MID THIGH, 01/26/2014, 9:11. [facility], CT, THORAX WITHOUT CONTRAST, 01/17/2014, 11:06. [facility], CT, THORAX WITHOUT CONTRAST, 05/17/2013, 10:07. [facility], CT, THORAX WITHOUT CONTRAST, 10/03/2012, 8:58. [facility], CT, CT CHEST WO CON, 02/21/2018, 8:35. FINDINGS: Image quality: Excellent. Lungs and pleura: No acute consolidation. Scattered subsegmental atelectasis and/or scarring. No pleural effusion. No pneumothorax. Scattered sub-5 mm unchanged small pulmonary nodules in both lungs, for example in the right upper lobe image 65 series 3, in the left upper lobe image 48 series 3. Unchanged subcentimeter ground glass nodularity present in the left lower lobe subpleural region also unchanged. Mediastinum: Heart size is normal. Coronary artery calcifications are present. No pericardial effusion. No mediastinal adenopathy by size criteria. Thoracic aorta and central pulmonary arteries are normal in size. Esophagus is normal in caliber. Bones and chest wall: No suspicious bony lesions. No vertebral body compression fractures. No axillary or supraclavicular adenopathy by size criteria. Thyroid gland unremarkable. Abdomen: Small hiatal hernia. Subcentimeter hypoattenuating cysts or hemangioma within the dome of the liver. IMPRESSION: Overall, grossly stable appearance of small bilateral pulmonary nodules, presumed granulomatous change. No suspicious findings to suggest active metastatic disease. Small hiatal hernia. Coronary artery disease. Dictated by: Leonard Gutiérrez M.D. on 05/08/2019 at 15:33 Approved by: Leonard Gutiérrez M.D. on 05/08/2019 at 15:42
== END ==
PROVIDERS: Family Provider Family Medicine; PCP Family Medicine; Visit Provider Family Medicine
DX: Z12.31 Encounter for screening mammogram for malignant neoplasm of breast (principal); Z85.3 Personal history of malignant neoplasm of breast; R91.8 Other nonspecific abnormal finding of lung field; I25.10 Atherosclerotic heart disease of native coronary artery without angina pectoris; K44.9 Diaphragmatic hernia without obstruction or gangrene; Z85.118 Personal history of other malignant neoplasm of bronchus and lung
CPT/HCPCS: 71250; 77063; 77067

== ENCOUNTER → 2020-05-09 09:56 | Outpatient (CLI) | payer MEDICARE, SELFPAY ==
--- NOTE | 2020-05-09 09:59 | DI.MG.S_ITS ---
UNILATERAL RIGHT DIGITAL SCREENING MAMMOGRAM 3D/2D WITH CAD POST MASTECTOMY: 05/09/2020 CLINICAL: Routine screening. Personal history of left breast cancer. Comparison is made to exams dated: 05/08/2019 mammogram, 02/24/2018 mammogram, and 12/21/2016 mammogram - [facility]. There are scattered fibroglandular elements in right breast. Current study was also evaluated with a Computer Aided Detection (CAD) system. No significant masses, calcifications, or other findings are seen in the breast. There has been no significant interval change. IMPRESSION: NEGATIVE There is no mammographic evidence of malignancy. A 1 year screening mammogram is recommended. This exam was interpreted at Station ID: [id number]. NOTE: For mammograms, a report in lay terms will be sent to the patient. Approximately 15% of breast malignancies will not be visualized mammographically. In the management of a palpable breast mass, a negative mammogram must not discourage biopsy of a clinically suspicious lesion. Electronically Signed By: Camilo pinto/chance:05/09/2020 15:41:41 copy to: Prateek Castillo letter sent: Normal Exam ACR BI-RADS Category 1: Negative 3341F
--- NOTE | 2020-05-09 10:02 | DI.CT.S_ITS ---
PROCEDURE: CT CHEST WO CON INDICATIONS: Follow-up lung cancer TECHNIQUE: Noncontrast 5 mm thick sections acquired from the pulmonary apices to the posterior costophrenic angles. 1 mm lung window, 5 mm thick coronal and sagittal and 7 mm axial MIP reformats were then acquired. For radiation dose reduction, the following was used: automated exposure control, adjustment of mA and/or kV according to patient size. COMPARISON: [facility], CT, CT CHEST WO CON, 05/08/2019, 13:49. FINDINGS: Image quality: Excellent. Scattered subsegmental atelectasis and/or scarring. No focal consolidation. Redemonstration of sub 5 mm scattered bilateral pulmonary nodules which are unchanged, presumably prior granulomatous disease. No pleural effusions or pneumothorax. Central and peripheral airways are patent and normal in caliber. Mediastinum: Heart size is normal. Coronary artery calcifications are present. No pericardial effusion. No mediastinal adenopathy by size criteria. Thoracic aorta and central pulmonary arteries are normal in size. Trace hiatal hernia. Bones and chest wall: No vertebral body compression fracture. Spondylytic changes and facet arthropathy. Scoliosis noted. No axillary or supraclavicular adenopathy by size criteria. Thyroid gland negative . Subcentimeter hepatic foci are statistically cysts or hemangiomas, although technically too small to characterize accurately and therefore nonspecific. IMPRESSION: Grossly unchanged scattered subcentimeter bilateral pulmonary nodules as above. No specific evidence to suggest active metastatic disease. Coronary artery disease Dictated by: Leonard Gutiérrez M.D. on 05/09/2020 at 10:17 Approved by: Leonard Gutiérrez M.D. on 05/09/2020 at 10:23
[2020-05-09 11:27] LABS: Add Manual Diff / Slide Review NO; Basophils Absolute Auto 200 /uL (0-100); Basophils Percent Auto 2.2 % (0-2); Eosinophils Absolute Auto 200 /uL (0-450); Eosinophils Percent Auto 2.5 % (2-4); Hematocrit 39.9 % (36-46); Hemoglobin 13.4 g/dL (12.0-16.0); Lymphocytes Absolute Auto 2400 /uL (1100-4500); Lymphocytes Percent Auto 27.4 % (25-40); Mean Corpuscular HGB Conc 33.5 % (30-36); Mean Corpuscular Hemoglobin 30.8 PG (26-34); Mean Corpuscular Volume 91.8 fL (80-100); Monocytes Absolute Auto 700 /uL (0-900); Monocytes Percent Auto 8.1 % (3-14); Neutrophils Absolute Auto 5300 /uL (1500-7000); Neutrophils Percent Auto 59.8 % (50-75); Platelet Count 202 X10^3/uL (150-400); Red Blood Cell Count 4.34 X10^6/uL (4.0-5.2); Red Cell Distribution Width 13.3 % (11.6-14.8); White Blood Cell Count 8.9 X10^3/uL (4.5-11.0)
[2020-05-09 11:38] LABS: Alanine Aminotransferase 19 IU/L (<35); Albumin 4.4 g/dL (3.5-5.0); Albumin Globulin Ratio 1.3 (1.0-2.8); Alkaline Phosphatase 61 U/L (38-126); Aspartate Aminotransferase 23 IU/L (14-36); BUN Creatinine Ratio 18.8 (6-22); Bilirubin Total 0.5 mg/dL (0.2-1.3); Blood Urea Nitrogen 13 mg/dL (7-17); Calcium 9.1 mg/dL (8.4-10.2); Carbon Dioxide 25 mmol/L (22-32); Chloride 100 mmol/L (98-107); Estimated Glomerular Filt Rate > 60.0 mL/min (>60); Globulin 3.3 g/dL (1.7-4.1); Glucose 107 mg/dL (80-110); HEMOLYSIS < 15 (0-50); Potassium 4.6 mmol/L (3.4-5.1); Sodium 131 mmol/L (137-145); Total Protein 7.7 g/dL (6.3-8.2)
== END ==
PROVIDERS: Family Provider Family Medicine; PCP Family Medicine; Referring Provider Internal Medicine; Visit Provider Internal Medicine
DX: Z12.31 Encounter for screening mammogram for malignant neoplasm of breast (principal); C50.912 Malignant neoplasm of unspecified site of left female breast; Z85.118 Personal history of other malignant neoplasm of bronchus and lung; R91.8 Other nonspecific abnormal finding of lung field; I25.10 Atherosclerotic heart disease of native coronary artery without angina pectoris
CPT/HCPCS: 36415; 71250; 77063; 77067; 80053; 85025

== ENCOUNTER → 2021-05-15 16:27 | Outpatient (CLI) | payer MEDICARE, SELFPAY ==
--- NOTE | 2021-05-15 | DI.MG.S_ITS ---
UNILATERAL RIGHT DIGITAL SCREENING MAMMOGRAM 3D/2D WITH CAD: 05/15/2021 CLINICAL: Routine screening. Personal history of left breast cancer. Comparison is made to exams dated: 05/09/2020 mammogram, 05/08/2019 mammogram, and 02/24/2018 mammogram - [facility]. There are scattered fibroglandular elements in right breast. Current study was also evaluated with a Computer Aided Detection (CAD) system. No significant masses, calcifications, or other findings are seen in the breast. There has been no significant interval change. IMPRESSION: NEGATIVE There is no mammographic evidence of malignancy. A 1 year screening mammogram is recommended. This exam was interpreted at Station ID: [id number]. NOTE: For mammograms, a report in lay terms will be sent to the patient. Approximately 15% of breast malignancies will not be visualized mammographically. In the management of a palpable breast mass, a negative mammogram must not discourage biopsy of a clinically suspicious lesion. Electronically Signed By: Camilo pinto/chance:05/16/2021 10:11:26 copy to: Prateek Castillo letter sent: Normal Exam ACR BI-RADS Category 1: Negative 3341F
--- NOTE | 2021-05-15 16:31 | DI.CT.S_ITS ---
PROCEDURE: CT CHEST WO CON INDICATIONS: history breast cancer TECHNIQUE: Noncontrast 5 mm thick sections acquired from the pulmonary apices to the posterior costophrenic angles. 1 mm lung window, 5 mm thick coronal and sagittal and 7 mm axial MIP reformats were then acquired. For radiation dose reduction, the following was used: automated exposure control, adjustment of mA and/or kV according to patient size. COMPARISON: [facility], CT, CT CHEST WO CON, 02/21/2018, 8:35. [facility], CT, CT CHEST WO CON, 05/09/2020, 10:02. FINDINGS: Image quality: Excellent. Lungs and pleura: Suture material in the right lower lobe. Ill-defined ground-glass opacity in the superior segment of the left lower lobe is unchanged. A few small pulmonary nodules measuring 0.4 cm or less are unchanged. For example (3/41, 47, 57), unchanged since at least February 2018. No pleural effusions or pneumothorax. Central and peripheral airways are patent and normal in caliber. Mediastinum: Heart size is normal. Mild coronary artery calcifications. No pericardial effusion. No mediastinal adenopathy by size criteria. Thoracic aorta and central pulmonary arteries are normal in size. Esophagus is normal in caliber. No hiatal hernia. Bones and chest wall: No suspicious bony lesions. No vertebral body compression fractures. Scoliosis. Left breast lumpectomy, unchanged. No axillary or supraclavicular adenopathy by size criteria. Thyroid gland is unremarkable. Abdomen: Hypodensity in the left lobe of liver likely a benign cyst is unchanged since 2018. Visualized upper abdominal solid organs and bowel loops appear normal in the absence of contrast. IMPRESSION: 1. Right lower lobe wedge resection. 2. Left lower lobe ground-glass pulmonary nodule is unchanged. 3. Additional scattered pulmonary nodules measuring 0.4 cm or less are unchanged. 4. Left breast lumpectomy. 5. No enlarged nodes seen. Dictated by: Harish Carranza M.D. on 05/15/2021 at 17:23 Approved by: Harish Carranza M.D. on 05/15/2021 at 17:41
[2021-05-15 16:58] LABS: Add Manual Diff / Slide Review NO; Basophils Absolute Auto 0 /uL (0-100); Basophils Percent Auto 0.5 % (0-2); Eosinophils Absolute Auto 300 /uL (0-450); Eosinophils Percent Auto 3.2 % (2-4); Hemoglobin 14.1 g/dL (12.0-16.0); Lymphocytes Absolute Auto 2600 /uL (1100-4500); Lymphocytes Percent Auto 28.8 % (25-40); Mean Corpuscular HGB Conc 33.6 % (30-36); Mean Corpuscular Volume 89.4 fL (80-100); Monocytes Absolute Auto 800 /uL (0-900); Monocytes Percent Auto 8.7 % (3-14); Neutrophils Absolute Auto 5200 /uL (1500-7000); Neutrophils Percent Auto 58.8 % (50-75); Platelet Count 221 X10^3/uL (150-400); Red Cell Distribution Width 13.2 % (11.6-14.8); White Blood Cell Count 8.9 X10^3/uL (4.5-11.0)
[2021-05-15 17:32] LABS: Alanine Aminotransferase 15 IU/L (<35); Albumin 4.4 g/dL (3.5-5.0); Albumin Globulin Ratio 1.5 (1.0-2.8); Alkaline Phosphatase 77 U/L (38-126); Aspartate Aminotransferase 20 IU/L (14-36); BUN Creatinine Ratio 13.9 (6-22); Bilirubin Total 0.2 mg/dL (0.2-1.3); Blood Urea Nitrogen 10 mg/dL (7-17); Calcium 9.3 mg/dL (8.4-10.2); Carbon Dioxide 24 mmol/L (22-32); Chloride 102 mmol/L (98-107); Estimated Glomerular Filt Rate > 60.0 mL/min (>60); Glucose 98 mg/dL (80-110); HEMOLYSIS < 15 (0-50); Potassium 4.2 mmol/L (3.4-5.1); Sodium 132 mmol/L (137-145); Total Protein 7.4 g/dL (6.3-8.2)
== END ==
PROVIDERS: Family Provider Family Medicine; PCP Family Medicine; Referring Provider Internal Medicine Medical Oncology; Visit Provider Internal Medicine Medical Oncology
DX: Z12.31 Encounter for screening mammogram for malignant neoplasm of breast (principal); R91.8 Other nonspecific abnormal finding of lung field; Z80.3 Family history of malignant neoplasm of breast
CPT/HCPCS: 36415; 71250; 77063; 77067; 80053; 85025

== ENCOUNTER → 2022-11-04 08:23 | Outpatient (CLI) | payer MEDICARE, SELFPAY ==
--- NOTE | 2022-11-04 | DI.MG.S_ITS ---
UNILATERAL RIGHT DIGITAL SCREENING MAMMOGRAM 3D/2D WITH CAD: 11/04/2022 CLINICAL: Routine screening. Personal history of left breast cancer. Comparison is made to exams dated: 05/15/2021 mammogram, 05/09/2020 mammogram, and 05/08/2019 mammogram - [facility]. The right breast is heterogeneously dense, which may obscure small masses (category c / 51-75% glandular tissue). Current study was also evaluated with a Computer Aided Detection (CAD) system. No significant masses, calcifications, or other findings are seen in the breast. There has been no significant interval change. IMPRESSION: NEGATIVE There is no mammographic evidence of malignancy. A 1 year screening mammogram is recommended. This exam was interpreted at Station ID: [id number]. NOTE: For mammograms, a report in lay terms will be sent to the patient. Approximately 15% of breast malignancies will not be visualized mammographically. In the management of a palpable breast mass, a negative mammogram must not discourage biopsy of a clinically suspicious lesion. Electronically Signed By: Fidencio dominique/chance:11/04/2022 08:43:26 copy to: Prateek Castillo letter sent: Normal Exam ACR BI-RADS Category 1: Negative 3341F
== END ==
PROVIDERS: PCP Family Medicine; Referring Provider Family Medicine; Visit Provider Family Medicine
DX: Z12.31 Encounter for screening mammogram for malignant neoplasm of breast (principal); Z85.3 Personal history of malignant neoplasm of breast
CPT/HCPCS: 77063; 77067

== ENCOUNTER → 2023-05-31 11:00 | Outpatient (CLI) | payer MEDICARE, SELFPAY ==
--- NOTE | 2023-05-31 | DI.RAD.S_ITS ---
Bone Density Report Name: YOSHI HOLDEN Age: 68 Sex: Female Ethnicity: White Date of : 1955 Indication: postmenopausal; screening for osteoporosis; Referring Provider: GURWINDER COYNE Study: Bone densitometry was performed. Exam Date: May 31, 2023 Accession number: [id number] Bone Density: Region BMD T-score Z-score Classification AP Spine(L1-L4) 1.057 0.1 2.1 Normal Femoral Neck (Left) 0.702 -1.3 0.4 Osteopenia Total Hip (Left) 0.791 -1.2 0.2 Osteopenia Femoral Neck (Right) 0.854 0.0 1.7 Normal Total Hip (Right) 0.867 -0.6 0.8 Normal Total Hip Mean 0.829 -0.9 0.5 Normal World Health Organization criteria for BMD impression classify patients as: Normal (T-score at or above -1.0), Osteopenia (T-score between -1.0 and -2.5), or Osteoporosis (T-score at or below -2.5). 10-year Fracture Risk(1): Major Osteoporotic Fracture 9.0% Hip Fracture 1.6% Reported Risk Factors: [place] (), Neck BMD=0.702, BMI=30.6, smoking (1) FRAX(R) Version 3.08. Fracture probability calculated for an untreated patient. Fracture probability may be lower if the patient has received treatment. Previous Exams: -- Region Exam Age BMD T-score BMD Change BMD Change Date g/cm2 vs Baseline vs Previous -- AP Spine (L1-L4) 05/31/2023 68 1.057 0.1 -0.056 (-5.0%)# -0.056 (-5.0%)# 07/21/2017 62 1.113 0.6 Total Hip(Left) 05/31/2023 68 0.791 -1.2 -0.034 (-4.1%)# -0.034 (-4.1%)# 07/21/2017 62 0.825 -1.0 Total Hip(Right) 05/31/2023 68 0.867 -0.6 -0.002 (-0.2%)# -0.002 (-0.2%)# 07/21/2017 62 0.868 -0.6 -- *Denotes significance at 95% confidence level, LSC for AP Spine = 0.022 g/cm2, LSC for Total Hip = 0.027 g/cm2 # Denotes dissimilar scan types or analysis methods Impression: The patient has low bone mass, based on the Left Femoral Neck T-score. The patient has an estimated ten-year risk of hip fracture of 1.6% and an estimated ten-year risk of major fracture of 9%, based on the WHO FRAX algorithm. The patient has risk factors, including: smoking. No significant bone loss was observed. Discussion: BONE DENSITY IS LOW AT ONE OR MORE SKELETAL SITES. This patient's lowest T-score is low at one or more skeletal sites. It meets the World Health Organization's (WHO) criteria for low bone mass (T-score between -1.0 and -2.5). The patient's 10-year risk of fracture as calculated by FRAX is less than the threshold where pharmacological therapy is recommended by the National Osteoporosis Foundation (NOF). However, all treatment decisions require clinical judgment and consideration of individual patient factors, including patient preferences, comorbidities, previous drug use, risk factors not captured in the FRAX model (e.g., frailty, falls, vitamin D deficiency, increased bone turnover, interval significant decline in bone density) and possible under or overestimation of fracture risk by FRAX. The patient should follow a healthful lifestyle (good nutrition with adequate calcium and vitamin D, and appropriate weight-bearing exercise). Follow-Up: Consider repeating this study in 2 to 3 years to reassess this patient's status, or sooner if there is some new clinical indication. Reported by: TIMO ROSENBAUM M.D. on 05/31/2023 11:36:00 AM.
== END ==
PROVIDERS: PCP Family Medicine; Referring Provider Family Medicine; Visit Provider Family Medicine
DX: M85.89 Other specified disorders of bone density and structure, multiple sites (principal); Z78.0 Asymptomatic menopausal state; Z90.710 Acquired absence of both cervix and uterus; Z92.23 Personal history of estrogen therapy
CPT/HCPCS: 77080

== ENCOUNTER → 2023-11-12 07:44 | Outpatient (CLI) | payer MEDICARE, SELFPAY ==
--- NOTE | 2023-11-12 | DI.MG.S_ITS ---
UNILATERAL RIGHT DIGITAL SCREENING MAMMOGRAM 3D/2D WITH CAD: 11/12/2023 CLINICAL: Routine screening. Personal history of left breast cancer. Comparison is made to exams dated: 11/04/2022 mammogram, 05/15/2021 mammogram, and 05/09/2020 mammogram - [facility]. The right breast is heterogeneously dense, which may obscure small masses (category c / 51-75% glandular tissue). Current study was also evaluated with a Computer Aided Detection (CAD) system. No significant masses, calcifications, or other findings are seen in the breast. There has been no significant interval change. IMPRESSION: NEGATIVE There is no mammographic evidence of malignancy. A 1 year screening mammogram is recommended. This exam was interpreted at Station ID: [id number]. NOTE: For mammograms, a report in lay terms will be sent to the patient. Approximately 15% of breast malignancies will not be visualized mammographically. In the management of a palpable breast mass, a negative mammogram must not discourage biopsy of a clinically suspicious lesion. Electronically Signed By: Liana mata/chance:11/12/2023 16:14:15 copy to: Prateek Castillo letter sent: Normal Exam ACR BI-RADS Category 1: Negative [id number]
== END ==
LOC: MAMMO 07:45
PROVIDERS: PCP Family Medicine; Referring Provider Family Medicine; Visit Provider Family Medicine
DX: Z12.31 Encounter for screening mammogram for malignant neoplasm of breast (principal); Z85.3 Personal history of malignant neoplasm of breast; R92.331 Mammographic heterogeneous density, right breast
CPT/HCPCS: 77063; 77067

== ENCOUNTER → 2025-02-07 08:53 | Outpatient (CLI) | payer OTHER, SELFPAY ==
--- NOTE | 2025-02-07 08:54 | DI.MG.S_ITS ---
MM screening mammo unilat RT: 02/07/2025. BI-RADS: 1 CLINICAL: 69-year old female for right screening mammogram. No Tyrer-Cuzick risk score calculation due to the patient's personal history of breast cancer. Patient reports a history of left breast carcinoma diagnosed at age 61. Status-post left mastectomy with radiation therapy, chemotherapy and hormonal therapy. No first-degree family history of breast cancer. The patient had a prior left breast biopsy. PRIOR EXAMS 11/12/2023, 11/04/2022, 05/15/2021, MAMMOGRAPHY TECHNIQUE: 2D and 3D (tomosynthesis) digital mammographic views obtained, with additional images as needed for full coverage. Current study was also evaluated with a Computer Aided Detection (CAD) system. DENSITY Right: C. The breasts are heterogeneously dense, which may obscure small masses. MAMMOGRAPHY FINDINGS Right: No suspicious mass, asymmetry, microcalcification, or other abnormality seen. IMPRESSION: Right * No evidence of malignancy. RECOMMENDATIONS Right * Annual screening mammography. OVERALL ASSESSMENT CATEGORY BI-RADS-1: Negative. [employer] recommends annual screening mammography beginning at age 40 for women with average risk of breast cancer. ELECTRONICALLY SIGNED: Efrem Hoffman M.D. on 02/07/2025 at 10:08:20 AM PT Interpreting Station ID: [id number]
== END ==
LOC: MAMMO 08:53
PROVIDERS: PCP Family Medicine; Referring Provider Family Medicine; Visit Provider Family Medicine
DX: Z12.31 Encounter for screening mammogram for malignant neoplasm of breast (principal); R92.333 Mammographic heterogeneous density, bilateral breasts; Z85.3 Personal history of malignant neoplasm of breast; Z90.12 Acquired absence of left breast and nipple
CPT/HCPCS: 77063; 77067